=== PATIENT | female | born 1940 | race Caucasian/White ===

== ENCOUNTER 2017-05-16 07:46 | Day surgery (SDC) | payer OTHER ==
[2017-04-09 16:50] LABS: Basophils # (auto) 0.1 uL; Basophils % (auto) 0.9 % (0.0-2.0); Eosinophils # (auto) 0.1 uL; Eosinophils % (auto) 1.3 % (0.0-7.0); Hematocrit 35.5 % (36.0-46.0); Lymphocytes # (auto) 1.6 uL; Lymphocytes % (auto) 27.7 % (10.0-50.0); Mean Corpuscular Hemoglobin 32.2 pg (28.0-32.0); Mean Corpuscular Hgb Conc. 33.8 g/dL (32.0-36.0); Mean Corpuscular Volume 95.1 fL (80.0-100.0); Mean Platelet Volume 10.2 fL (7.4-10.4); Monocytes # (auto) 0.5 uL; Monocytes % (auto) 9.2 % (0.0-12.0); Neutrophils # (auto) 3.4 uL; Neutrophils % (auto) 60.9 % (37.0-80.0); Platelet Count (auto) 262 10^3/uL (140-450); Red Cell Distribution Width 13.5 % (11.6-16.0); White Blood Cell 5.6 10^3/uL (4.4-10.8)
[2017-04-09 17:10] LABS: INR 0.97 (0.9-1.15); Partial Thromboplastin Time 25.4 sec (22.64-33.71); Prothrombin Time 10.6 sec (9.37-12.3)
[2017-04-09 17:11] LABS: Albumin 3.7 g/dL (3.4-5.0); Potassium 3.8 mmol/L (3.5-5.1)
[2017-04-09 17:14] LABS: Calcium 9.2 mg/dL (8.5-10.1)
[2017-04-09 17:19] LABS: Bilirubin, Total 0.2 mg/dL (0.2-1.0)
[2017-05-13 12:26] LABS: Basophils # (auto) 0 uL; Basophils % (auto) 0.4 % (0.0-2.0); CONDITION Y; Eosinophils # (auto) 0.1 uL; Eosinophils % (auto) 1.4 % (0.0-7.0); Hemoglobin 12.8 g/dL (12.2-16.2); Lymphocytes # (auto) 1.6 uL; Lymphocytes % (auto) 19.7 % (10.0-50.0); Mean Corpuscular Hemoglobin 32.7 pg (28.0-32.0); Mean Corpuscular Hgb Conc. 34.5 g/dL (32.0-36.0); Mean Corpuscular Volume 94.8 fL (80.0-100.0); Mean Platelet Volume 9.6 fL (7.4-10.4); Monocytes # (auto) 0.7 uL; Monocytes % (auto) 7.8 % (0.0-12.0); Neutrophils # (auto) 5.9 uL; Neutrophils % (auto) 70.7 % (37.0-80.0); Platelet Count (auto) 343 10^3/uL (140-450); Red Cell Distribution Width 13.4 % (11.6-16.0); SUSPECT SEE PRINTOUT; White Blood Cell 8.3 10^3/uL (4.4-10.8)
[2017-05-13 12:37] LABS: Urine Bilirubin Negative (Negative); Urine Color Yellow (Yellow); Urine Glucose Normal (Normal); Urine Ketone Negative (Negative); Urine Nitrite Negative (Negative); Urine RBC 17 /hpf (0 - 4); Urine Squamous Epithelial Cell FEW /hpf (<5); Urine Urobilinogen Normal (Negative); Urine WBC Clumps PRESENT /hpf (None Seen)
[2017-05-13 12:38] LABS: Urine Blood 2+ /uL (Negative)
[2017-05-13 12:39] LABS: INR 0.94 (0.9-1.15); Prothrombin Time 10.2 sec (9.37-12.3)
[2017-05-13 12:53] LABS: Albumin 3.7 g/dL (3.4-5.0); BUN/Creatinine Ratio 22.4; Calcium 8.9 mg/dL (8.5-10.1); Potassium 4.3 mmol/L (3.5-5.1)
[2017-05-13 12:56] LABS: Bilirubin, Total 0.3 mg/dL (0.2-1.0); Total Protein 7.6 g/dL (6.4-8.2)
[~2017-05-16] VITALS: Ht 154.9 cm; Wt 46.7 kg
[2017-05-16] MEDS ORDERED: ceFAZolin 1GM/50ML D5W 50 ML IV ONE (07:58)
[2017-05-16] MEDS ORDERED: LIDOCAINE 2% JELLY 11ml (GLYDO) ONE (10:06)
[2017-05-16] MEDS ORDERED: PROPOFOL 10 MG/ML 20 ML IV ONE (10:42)
[2017-05-16] MEDS ORDERED: fentaNYL CITRATE 100 MCG/2 ML VL ONE (10:42)
[2017-05-16] MEDS ORDERED: ONDANSETRON HCL 4 MG/2 ML VIAL ONE ×2 (10:43→10:46)
[2017-05-16] MEDS ORDERED: KETOROLAC TROMETH 30 MG/ML 1ML VIAL IV ONE (11:15)
[2017-05-16] MEDS ORDERED: KETOROLAC TROMETH 30 MG/ML 1ML VIAL ONE (11:18)
[2017-05-16 11:50] VITALS: BP 118/65
[2017-05-16] MEDS ORDERED: fentaNYL CITRATE 100 MCG/2 ML VL IV ONE (12:00)
== END 2017-05-16 12:05 | disposition home or self-care (01) ==
LOC: SUR 07:46
PROVIDERS: ATTEND Urology
DX: N34.3 Urethral syndrome, unspecified (principal); N32.0 Bladder-neck obstruction
CPT/HCPCS: 36415; 52276; 80053; 81001; 85025; 85610; 85730; J0690; J1885; J2405; J2704; J3010; J7030